=== PATIENT | female | born 1995 | race Caucasian/White ===

== ENCOUNTER 2016-03-05 23:13 | Emergency (ER) | payer OTHER ==
[~2016-03-05] VITALS: Ht 170.2 cm; Wt 96.8 kg
[~2016-03-05 23:13] MED LIST: AMOX TR-K CLV1 EAC4 PO; BACTERICIN30 GM TP; BUPROPION XL150 MG PO; CEPHALEXIN500 M1 PO; CIPRO500 MG PO; CONCERTA27 MG PO; CONCERTA36 MG PO; FLONASE16 GM NS; FLOVENT 11120 INHALA; FLOVENT 11120 INHALA IH; HYDROCODON-ACE1 EAC7 PO; HYDROCODON-ACE1 EACH; IBUPROFEN600 MG; IBUPROFEN600 MG PO; MACROBID100 MG PO; MELOXICAM7.5 MG; MOTRIN600 MG PO; MOTRIN800 MG PO; Motrin PO; NAPROSYN500 MG PO; NASALCROM NASAL13 ML BOTH NARES; NIGHTTIME SLEEP25 M2 PO; NORCO 5/3251 TABLET PO; PEN-VEE K,VEET500 MG; PERCOCET 5/31 TABLET PO; PREDNISONE20 MG PO; PRENATAL 19 CH1 EACH PO; PRENATAL VITAM1 EAC8 PO; PREVACID PO; PREVACID15 MG PO; PROAIR HFA8.5 GM IH; PROMETHAZINE HC25 M1; PROMETHAZINE HC25 M1 PO; PROMETHAZINE12.5 M1 PO; PROVENTIL,200 INHALA; ST. JOHN'S WOR150 MG PO; ST. JOHN'S WOR300 M1 PO; SULFAMETHOXAZOLE-TMP; ULTRAM50 MG PO; WELLBUTRIN SR150 MG PO; ZANTAC150 MG PO; ZITHROMAX Z-PA250 MG PO; ZOFRAN ODT4 MG PO; ZOFRAN4 MG PO; ZYRTEC10 M2 PO; Zofran PO; no home med; no medications
[2016-03-06] MEDS ORDERED: NAPROSYN500 MG PO (00:39)
[2016-03-06 00:49] VITALS: BP 115/76
== END 2016-03-06 01:20 | disposition home or self-care (01) ==
LOC: EME 23:13
DX: S93.402A Sprain of unspecified ligament of left ankle, initial encounter (principal); S93.602A Unspecified sprain of left foot, initial encounter; W10.9XXA Fall (on) (from) unspecified stairs and steps, initial encounter; J45.909 Unspecified asthma, uncomplicated; E05.00 Thyrotoxicosis with diffuse goiter without thyrotoxic crisis or storm; E03.9 Hypothyroidism, unspecified; Z91.041 Radiographic dye allergy status; Z88.6 Allergy status to analgesic agent; Z88.8 Allergy status to other drugs, medicaments and biological substances
CPT/HCPCS: 73630; 99281; 99283

== ENCOUNTER 2016-03-24 14:47 | Emergency (ER) | payer OTHER ==
[~2016-03-24] VITALS: Ht 170.2 cm; Wt 95.5 kg
[2016-03-24 16:36] VITALS: BP 111/70
== END 2016-03-24 16:37 | disposition home or self-care (01) ==
LOC: EME 14:47
DX: S93.602D Unspecified sprain of left foot, subsequent encounter (principal); W10.8XXD Fall (on) (from) other stairs and steps, subsequent encounter
CPT/HCPCS: 99281; 99284

== ENCOUNTER 2017-06-13 01:28 | Emergency (ER) | payer OTHER ==
[~2017-06-13] VITALS: Ht 172.7 cm; Wt 96.1 kg
[2017-06-13 02:21] LABS: HEMATOCRIT 40.5 % (36.0-46.0); HEMOGLOBIN 13.5 G/DL (11.9-15.5); MCH 27.6 PG (29.0-34.0); MCHC 33.3 G/DL (30.0-36.0); MCV 82.7 FL (83-99); PLATELET COUNT 347 K/uL (156-360); RBC DIS.WIDTH-CV 15.6 % (11.8-14.6); RBC DIS.WIDTH-SD 47.3 % (39-53); WHITE BLOOD COUNT 17.7 K/uL (4.1-10.2)
[2017-06-13 02:22] LABS: CHLORIDE 98 mEq/L (99-109); POTASSIUM 3.7 mEq/L (3.7-5.4); SODIUM 136 mEq/L (136-147)
[2017-06-13 02:23] LABS: GLUCOSE 138 mg/dL (70-99)
[2017-06-13 02:27] LABS: CREATININE 0.7 mg/dL (0.6-1.3); GFR ESTIMATE (CALCULATED) > 59 mL/min/
[2017-06-13 02:28] LABS: UREA NITROGEN (BUN) 12 mg/dL (9-23)
[2017-06-13 02:36] LABS: QUANTITATIVE HCG < 4.0 MIU/ML
[2017-06-13 05:44] LABS: APPEARANCE SL.HAZY ((CLEAR)); BILIRUBIN NEGATIVE; BLOOD NEGATIVE; COLOR YELLOW ((YELLOW)); GLUCOSE (STRIP) NEGATIVE; KETONES 5; LEUKOCYTES NEGATIVE; NITRITE NEGATIVE; PROTEIN (STRIP) NEGATIVE; SPECIFIC GRAVITY 1.027 (1.000-1.030); UROBILINOGEN 0.2 MG/DL (0.2-1.0)
[2017-06-13 05:48] LABS: BACTERIA NONE SEEN /HPF; EPITHELIAL CELLS 1+ /HPF; MUCUS 1+ /LPF; UCUL ADDED? NO; WHITE BLOOD CELLS 0-5 /HPF (0-5)
[2017-06-13] MEDS ORDERED: MOTRIN800 MG PO (05:57)
[2017-06-13] MEDS ORDERED: ZOFRAN ODT4 MG PO (05:57)
[2017-06-13 06:31] VITALS: BP 111/71
[2017-06-14] MEDS ORDERED: PHENERGAN25 MG PR (18:01)
== END 2017-06-13 06:34 | disposition home or self-care (01) ==
LOC: EME 01:28
DX: K52.9 Noninfective gastroenteritis and colitis, unspecified (principal); R51 Headache; R00.0 Tachycardia, unspecified
CPT/HCPCS: 80048; 81003; 84702; 85027; 99281; 99285; J2405; J7040

== ENCOUNTER 2017-06-14 15:54 | Emergency (ER) | payer OTHER ==
[~2017-06-14] VITALS: Ht 172.7 cm; Wt 94.5 kg
[2017-06-14 16:21] LABS: HEMATOCRIT 36.9 % (36.0-46.0); HEMOGLOBIN 12.3 G/DL (11.9-15.5); MCH 27.7 PG (29.0-34.0); MCHC 33.3 G/DL (30.0-36.0); MCV 83.1 FL (83-99); PLATELET COUNT 307 K/uL (156-360); RBC DIS.WIDTH-CV 15.4 % (11.8-14.6); RED BLOOD COUNT 4.44 M/uL (3.80-5.20)
[2017-06-14 16:29] LABS: ALBUMIN 4.4 g/dL (3.2-4.8)
[2017-06-14 16:30] LABS: CHLORIDE 104 mEq/L (99-109); POTASSIUM 3.7 mEq/L (3.7-5.4); SODIUM 139 mEq/L (136-147)
[2017-06-14 16:32] LABS: TOTAL PROTEIN 7.6 g/dL (6.4-8.3)
[2017-06-14 16:34] LABS: GLUCOSE 87 mg/dL (70-99); TOTAL BILIRUBIN 0.2 mg/dL (0.0-1.0)
[2017-06-14 16:35] LABS: ALKALINE PHOSPHATASE 60 IU/L (3-129)
[2017-06-14 16:36] LABS: CREATININE 0.7 mg/dL (0.6-1.3); GFR ESTIMATE (CALCULATED) > 59 mL/min/
[2017-06-14 16:37] LABS: AST (GOT) 16 IU/L (2-34); UREA NITROGEN (BUN) 13 mg/dL (9-23)
[2017-06-14 16:39] LABS: ALT (GPT) 17 IU/L (3-49)
[2017-06-14 16:44] LABS: QUANTITATIVE HCG < 4.0 MIU/ML
[2017-06-14] MEDS ORDERED: PHENERGAN25 MG PR (18:01)
[2017-06-14 18:16] VITALS: BP 104/62
== END 2017-06-14 18:18 | disposition home or self-care (01) ==
LOC: EME 15:54
PROVIDERS: Nurse Practitioner Family
DX: A08.4 Viral intestinal infection, unspecified (principal); R73.03 Prediabetes; K21.9 Gastro-esophageal reflux disease without esophagitis; J45.909 Unspecified asthma, uncomplicated; F90.9 Attention-deficit hyperactivity disorder, unspecified type; F32.9 Major depressive disorder, single episode, unspecified; Z91.041 Radiographic dye allergy status; Z88.6 Allergy status to analgesic agent; Z88.8 Allergy status to other drugs, medicaments and biological substances; Z88.5 Allergy status to narcotic agent
CPT/HCPCS: 74176; 80053; 84702; 85027; 99281; 99284; J2405; J7030

== ENCOUNTER 2017-07-27 20:57 | Emergency (ER) | payer OTHER ==
[~2017-07-27] VITALS: Ht 172.7 cm; Wt 97.9 kg
[~2017-07-27 20:57] MED LIST changes: +PHENERGAN25 MG PR
[2017-07-27 22:04] LABS: HEMOGLOBIN 12.8 G/DL (11.9-15.5); MCH 27.6 PG (29.0-34.0); MCHC 32.8 G/DL (30.0-36.0); MCV 84.1 FL (83-99); PLATELET COUNT 316 K/uL (156-360); RBC DIS.WIDTH-SD 45.7 % (39-53); RED BLOOD COUNT 4.64 M/uL (3.80-5.20); WHITE BLOOD COUNT 12.2 K/uL (4.1-10.2)
[2017-07-27 22:18] LABS: CHLORIDE 108 mEq/L (99-109); POTASSIUM 4.1 mEq/L (3.7-5.4); SODIUM 141 mEq/L (136-147)
[2017-07-27 22:19] LABS: GLUCOSE 102 mg/dL (70-99)
[2017-07-27 22:23] LABS: CREATININE 0.7 mg/dL (0.6-1.3); GFR ESTIMATE (CALCULATED) > 59 mL/min/
[2017-07-27 22:24] LABS: UREA NITROGEN (BUN) 14 mg/dL (9-23)
[2017-07-27 22:31] LABS: TROP-I INTERPRETATION NEGATIVE; TROPONIN-I < 0.01 ng/mL (0.0-0.30)
[2017-07-27 22:32] LABS: QUANTITATIVE HCG < 4.0 MIU/ML
[2017-07-27 22:36] LABS: APPEARANCE SL.HAZY ((CLEAR)); BILIRUBIN NEGATIVE; BLOOD SMALL; COLOR YELLOW ((YELLOW)); GLUCOSE (STRIP) NEGATIVE; KETONES NEGATIVE; LEUKOCYTES NEGATIVE; NITRITE NEGATIVE; PROTEIN (STRIP) NEGATIVE; SPECIFIC GRAVITY 1.027 (1.000-1.030); UROBILINOGEN 0.2 MG/DL (0.2-1.0)
[2017-07-27 22:39] LABS: BACTERIA NONE SEEN /HPF; EPITHELIAL CELLS 1+ /HPF; MUCUS TRACE /LPF; UCUL ADDED? NO; WHITE BLOOD CELLS 0-5 /HPF (0-5)
[2017-07-28] MEDS ORDERED: PREDNISONE50 MG PO (00:24)
[2017-07-28 00:30] VITALS: BP 136/85
== END 2017-07-28 00:30 | disposition home or self-care (01) ==
LOC: EME 20:57 → RME 20:57
DX: J06.9 Acute upper respiratory infection, unspecified (principal); J45.909 Unspecified asthma, uncomplicated; K21.9 Gastro-esophageal reflux disease without esophagitis; R73.03 Prediabetes; F90.9 Attention-deficit hyperactivity disorder, unspecified type; F32.9 Major depressive disorder, single episode, unspecified; Z91.041 Radiographic dye allergy status; Z88.6 Allergy status to analgesic agent; Z88.5 Allergy status to narcotic agent; Z88.8 Allergy status to other drugs, medicaments and biological substances
CPT/HCPCS: 71046; 80048; 81003; 84484; 84702; 85027; 93005; 94640; 99281; 99283; J7512

== ENCOUNTER 2017-10-03 11:28 | Emergency (ER) | payer OTHER ==
[~2017-10-03] VITALS: Ht 172.7 cm; Wt 90.9 kg
[~2017-10-03 11:28] MED LIST changes: +PREDNISONE50 MG PO
[2017-10-03 12:50] VITALS: BP 126/90
== END 2017-10-03 12:59 | disposition home or self-care (01) ==
LOC: EME 11:28
DX: T44.5X1A Poisoning by predominantly beta-adrenoreceptor agonists, accidental (unintentional), initial encounter (principal); F32.9 Major depressive disorder, single episode, unspecified; F41.9 Anxiety disorder, unspecified; F90.9 Attention-deficit hyperactivity disorder, unspecified type; J45.909 Unspecified asthma, uncomplicated; K21.9 Gastro-esophageal reflux disease without esophagitis; R73.03 Prediabetes; Z91.041 Radiographic dye allergy status; Z88.6 Allergy status to analgesic agent; Z88.5 Allergy status to narcotic agent
CPT/HCPCS: 99281; 99284